=== PATIENT | female | born 1970 | race Caucasian/White ===

== ENCOUNTER → 2017-03-13 | Outpatient (CLI) | payer MEDICARE, OTHER ==
[~2017-03-13] MED LIST: ALDACTONE25 MG PO; AMOXICILLIN500 M1 PO; ELIQUIS5 MG PO; KCL PO; LACTULOSE10 GM/15 M PO; LASIX PO; LIORESAL10 MG PO; LUNESTA1 MG PO; MAGNESIUM27 MG PO; NEURONTIN PO; OXYCODONE HCL10 MG PO; PHENERGAN25 MG PO; PROTONIX PO; TRAZODONE HCL300 MG PO; TYVASO1.74 MG/2. IH; VIAGRA PO; VOLTAREN100 GM TOP; ZOLOFT PO
[2017-03-13 12:24] LABS: HEMATOCRIT 37.3 % (35.0-45.0); HEMOGLOBIN 11.7 gm/dL (12.0-16.0); MEAN CELL VOLUME 76.3 FL (83-96); MEAN CORPUSCULAR HEMOGLOBIN 24.1 PG (28-34); MEAN CORPUSCULAR HGB CONC 31.5 g/dL (30-36); MEAN PLATELET VOLUME 7.6 FL (6.5-11.5); RED BLOOD COUNT 4.88 X10e (3.90-5.30); RED CELL DISTRIBUTION WIDTH 19.8 % (11.0-15.5); WHITE BLOOD COUNT 7.4 X10e3 (4.0-10.5)
[2017-03-13 13:22] LABS: ALBUMIN SERUM 3.7 g/dL (3.5-5.0); BILIRUBIN,TOTAL 3.6 mg/dL (0.2-2.0); BUN/CREATININE RATIO 18.33; CALCIUM SERUM 9.1 mg/dL (8.4-10.2); CREATININE SERUM 0.6 mg/dL (0.6-1.4); GLOM FILT RATE Estimated 109.3 mL/min (>60); POTASSIUM 3.2 mmol/L (3.5-5.1); PROTEIN TOTAL SERUM 8.1 g/dL (6.0-8.3)
== END | disposition home or self-care (01) ==
LOC: CAMB 10:30
PROVIDERS: Orthopaedic Surgery
DX: Z01.812 Encounter for preprocedural laboratory examination (principal); M87.871 Other osteonecrosis, right ankle
CPT/HCPCS: 36415; 80053; 85027

== ENCOUNTER 2017-03-27 09:57 | Inpatient (IN) | payer MEDICARE, OTHER ==
--- NOTE | ~2017-03-27 | DS ---
Unit #: [id number] #: [id number] Patient: SHIELA STRAUSS [id number] [address] [place], [place] [address] [id number] I MR#: [id number] NAME: SHIELA STRAUSS ROOM: 450 Age: 47 Sex: F Admission Date: 03/27/2017 : 1970 Discharge Date: 03/30/2017 Attending Physician: Thompson Hi M.D. Primary Care Physician: Shad Alvarado M.D. DISCHARGE SUMMARY CHIEF COMPLAINT Right ankle pain. HISTORY OF PRESENT ILLNESS The patient is a 47-year-old female with history of alcoholism and cirrhosis, who has right ankle pain secondary to avascular necrosis. She has failed nonoperative care and is therefore admitted for right ankle fusion. HOSPITAL COURSE The patient was taken to the operating room the day of admission where she underwent right ankle fusion using an anterior plate and proximal tibial bone graft with Infuse bone morphogenic protein. Postoperative course was somewhat elise because of pain control issues. Her pain was managed with an IV morphine DINKER and Percocet. She continued to experience significant pain despite her block, which she states did not work. She was seen by internal medicine on a daily basis for prevention of alcohol withdrawal symptoms. Her hematocrit was 27.1% on the first postoperative day. Dressing was changed on the second postoperative day. Wounds were healing well. She was seen by physical therapy on a daily basis and instructed on how to remain nonweightbearing on her effected side. She requested rehabilitation postoperative; therefore, the funeral planner saw and arranged for her to be placed in rehab. She is also recovering from a recent shoulder replacement and knee replacement. She remained otherwise afebrile with stable vital signs. FINAL DIAGNOSIS Right ankle pain, secondary to avascular necrosis. OPERATION PERFORMED Right ankle fusion on March 27, 2017. DISPOSITION AND RECOMMENDATIONS 1. The patient is discharged to rehab. She will have ongoing physical therapy and occupational therapy at that location. 2. She is to remain strictly nonweightbearing on the right ankle for a total of three months. 3. Keep the dressing clean, dry, and intact. Do not change the dressing unless instructed by Dr. Hi. If there are any problems with the dressing, please call Dr. Hi at [phone]. 4. Continue ice and elevation. DISCHARGE MEDICATIONS 1. Lactulose 10 g p.o. q.8 hours p.r.n. constipation. Unit #: [id number] #: [id number] Patient: SHIELA STRAUSS 2. Neurontin 600 mg p.o. t.i.d. 3. Zoloft 150 mg p.o. q.a.m. 4. Phenergan 25 mg p.o. q.4 hours p.r.n. nausea. 5. Lunesta 1 mg p.o. nightly p.r.n. insomnia. 6. Lasix 40 mg p.o. b.i.d. 7. Oxycodone 10 mg without Tylenol one or two p.o. q.4 hours p.r.n. pain. 8. Protonix 40 mg p.o. b.i.d. 9. Baclofen 10 mg p.o. t.i.d. FOLLOWUP Followup in my office in 10-14 days for dressing change, suture removal, and application of cast. Call [phone] to confirm the appointment. Dictated byJavier Hi M.D. GEOVANNA/felix TD: 03/29/2017 08:59 JOB #: [id number] DISCHARGE SUMMARY Page 1 of 1 X Александр Hi MD X DISCHARGE SUMMARY
--- NOTE | ~2017-03-27 | HP ---
Unit #: [id number] #: [id number] Patient: SHIELA STRAUSS [id number] [address] [address] [id number] O MR#: [id number] NAME: SHIELA STRAUSS ROOM: Age: Sex: F Admission Date: 03/27/2017 : 1970 Attending Physician: Thompson Hi M.D. Primary Care Physician: Shad Alvarado M.D. HISTORY AND PHYSICAL DATE OF ADMISSION 03/27/2017 CHIEF COMPLAINT Right ankle pain. HISTORY OF PRESENT ILLNESS The patient is a 47-year-old female with alcoholic liver cirrhosis, hepatic encephalopathy, and right ankle pain secondary to avascular necrosis. The patient has failed conservative care and is therefore admitted for ankle fusion with proximal tibial bone graft. PAST MEDICAL HISTORY Remarkable for: 1. Liver cirrhosis. 2. Hepatic encephalopathy. 3. Avascular necrosis of the ankle. 4. Avascular necrosis of the hip. 5. Blood clotting disorder. 6. Kidney stones. 7. Shoulder pain. 8. History of rheumatic fever. 9. Alcoholism. 10. Arthritis. 11. Depression. 12. Anxiety. 13. Gastroparesis. 14. Chronic pain syndrome. 15. Pulmonary hypertension. She has reportedly been cleared for surgery and will therefore undergo right ankle fusion using possible ankle fusion plate and proximal tibial bone graft with INFUSE bone morphogenic protein. PAST SURGICAL HISTORY 1. Appendectomy. 2. section. 3. Gastric surgery for morbid obesity. 4. Inguinal hernia repair. 5. Sinus surgery. 6. Shoulder replacement. 7. Knee replacement. 8. Revision knee replacement. Unit #: [id number] #: [id number] Patient: SHIELA STRAUSS HOME MEDICATIONS 1. Aspirin. 2. Benzonatate. 3. Eliquis. 4. Endocet. 5. Eszopiclone. 6. Folate. 7. Lasix. 8. Gabapentin. 9. Lactulose. 10. Pantoprazole. 11. Pepcid. 12. Potassium. 13. Protonix. 14. Sildenafil. 15. Spironolactone. 16. Tramadol. 17. Ventolin. 18. Vitamin B1. 19. Voltaren gel. ALLERGIES None. SOCIAL HISTORY Patient drank up to 14 alcoholic drinks per week. She is a current one pack per day smoker for 20 years. FAMILY HISTORY Bipolar, breast cancer, depression, hypertension. PHYSICAL EXAMINATION GENERAL: This is a well-developed, well-nourished female in no acute distress. HEENT: Pharynx is clear. NECK: Supple without masses. HEART: Regular sinus rhythm without murmurs or gallops. LUNGS: Clear. ABDOMEN: Soft and nontender without masses or organomegaly. RIGHT ANKLE: Demonstrates no swelling, erythema, or warmth. The patient has a normal arch, heel is neutral. She has diffuse tenderness about the ankle to palpation in the anterolateral ankle. Ankle motion is painful. Dorsiflexion is present and neutral. Plantar flexion is 15 degrees. Subtalar inversion 10 degrees, eversion 10 degrees. Sensation is intact. Capillary refill is normal. Pulses are intact. Motor exam is normal. DIAGNOSTIC STUDIES IMAGING: Standing x-rays of the right ankle demonstrate avascular necrosis of talar dome and proximal tibia. ADMISSION DIAGNOSIS Symptomatic right ankle arthritis secondary to talar avascular necrosis. PLAN The patient will undergo right ankle fusion with autogenous and allograft bone chips. Will also use INFUSE bone morphogenic protein. I would like to use a plate. Unit #: [id number] #: [id number] Patient: SHIELA STRAUSS This procedure was described along with the risks of bleeding, infection, nerve damage, need for further surgery in the future, prolonged recovery time, deep venous thrombosis, pulmonary embolism, nonunion, malunion, and anesthetic complications. She understands the above risks and agrees to proceed. Dictated by Cheikh Cunningham/whit TD: 03/26/2017 21:04 JOB #: [id number] HISTORY AND PHYSICAL Page 1 of 1 X Александр Hi MD HISTORY AND PHYSICAL
--- NOTE | ~2017-03-27 | US8 ---
[facility] A Service of [facility] & [facility] RADIOLOGY TEXT RESULTS PATIENT: SHIELA STRAUSS LOCATION: B 450-01 : [birth year] UNIT #: [id number] AGE: [address]: Александр Hi MD SEX: F ORDER DR: [id number] [facility] [address] [place]. [place], [place] [address] [id number] I MR#: [id number] Acc #: [id number] NAME: SHIELA STRAUSS : 1970 SEX: F STUDY DATE/TIME: 03/30/2017 15:28 UNIT: [facility] ROOM: [facility] STUDY DESCRIPTION: US Abdominal Wall/Quadrant Attending Physician: Thompson Hi M.D. Ordering Physician: Jakub Blanca M.D. Primary Care Physician: Shad Alvarado M.D. MEDICAL IMAGING REPORT This report is preliminary unless electronic signature is present EXAM Abdominal wall quadrant ultrasound INDICATIONS Ascites. Abdominal distension. TECHNIQUE Carrera-scale imaging of the abdominal quadrants. COMPARISON None. FINDINGS No evidence for ascites. IMPRESSION No ascites. Dictated by... Beto Meek M.D. THIS IS AN ELECTRONICALLY VERIFIED REPORT Beto Meek M.D. at 04/03/2017 7:22 AM EED/jem TD: 03/30/2017 20:47 JOB #: [id number] MEDICAL IMAGING REPORT Page 1 of 1 COPY
--- NOTE | ~2017-03-27 | OR ---
Unit #: [id number] #: [id number] Patient: SHIELA STRAUSS [id number] [address] [address] [id number] I MR#: [id number] NAME: SHIELA STRAUSS ROOM: [facility] Date of Procedure: 03/27/2017 Admission Date: 03/27/2017 Surgeon: Thompson Hi M.D. : 1970 Attending Physician: Thompson Hi M.D. Primary Care Physician: Shad Alvarado M.D. OPERATIVE REPORT PREOPERATIVE DIAGNOSIS Right ankle avascular necrosis. POSTOPERATIVE DIAGNOSIS Right ankle avascular necrosis. PROCEDURES PERFORMED 1. Right ankle fusion (71493). 2. Right proximal tibial bone graft (26692). ASSISTANTS Iris, JIMMY. ANESTHESIA Popliteal saphenous block and general anesthetic. INDICATIONS FOR SURGERY The patient is a 47-year-old female with history of hepatic encephalopathy and alcoholism, who has right ankle pain secondary to distal tibial avascular necrosis. She has failed to respond to conservative care and is therefore to undergo ankle fusion. Risks and benefits of the procedure were discussed. She agrees to proceed. DESCRIPTION OF PROCEDURE The patient underwent right popliteal saphenous block in the anesthesia holding area. She was then taken to the operating room and placed in supine position and general anesthetic was induced. The right leg was identified as the correct operative extremity during the time-out procedure. The IV antibiotic protocol was followed. The right leg was then prepped and draped in usual sterile fashion. The leg was exsanguinated and the thigh tourniquet inflated to 300 mmHg. An anterior longitudinal incision was made over the ankle measuring 12 cm. Subcutaneous tissue was divided. The superficial peroneal nerve was identified and preserved. The extensor retinaculum was opened. The interval between the extensor hallucis longus and anterior tibial tendons was then developed. The neurovascular bundle was retracted laterally. The joint was exposed with subperiosteal dissection. The joint appeared normal. Power osteotomes, curved curettes, and rongeurs were utilized to remove the articular cartilage from both sides of the ankle joint. The underlying subchondral bone was feathered. There was obvious avascular necrosis of the distal tibia. Unit #: [id number] #: [id number] Patient: SHIELA STRAUSS A curvilinear proximal lateral tibial incision was then made measuring 6 cm. Subcutaneous tissue was divided. The extensor fascia was opened and the proximal lateral tibial cortex was exposed subperiosteally. A 1 x 2 cm cortical window was made with the osteotome and a large amount of cancellous graft was harvested with the curved curette. This was packed into the tibiotalar fusion site along with two collagen sponges soaked in Infuse bone morphogenic protein. The donor site was irrigated and then filled with allograft cancellous bone chips and then the cortical window was replaced. The extensor fascia was closed with 0 Vicryl [id number] sutures. Subcutaneous tissue was closed with 3-0 Vicryl and the skin was closed with 3-0 nylon. After the autogenous bone graft was placed into the tibiotalar fusion site, the joint was positioned appropriately and provisionally fixated with a guide pin placed from proximal medial to distal lateral. Proper ankle position was confirmed with C-arm fluoroscopy. Care was taken to ensure the ankle was in 0 degrees of dorsiflexion and about 3 degrees of heel valgus. A Planet8 6.5 mm diameter cannulated screw was placed over this guidepin and tightened. Excellent fixation was achieved. A small anterior Mota plate was applied to the anterior ankle and provisionally pinned in place. It was then fixated to the talus and to the tibia with multiple 4.5 mm diameter cortical screws. Two screws were placed in the talar neck and four screws were placed in the tibia. Excellent fixation was achieved. AP and lateral C-arm fluoroscopic views documented satisfactory joint position and hardware position. Deep tissues were closed with 2-0 Vicryl. Subcutaneous tissue was closed with 3-0 Vicryl. Skin was closed with 3-0 nylon horizontal mattress sutures. Xeroform gauze, dressing, sponges, Webril, and a posterior fiberglass splint were applied. The patient was then transported to the recovery room in stable condition. ESTIMATED BLOOD LOSS 100 mL. COMPLICATIONS None. SPECIMENS None. Dictated by.Cheikh Berumen/aniceto TD: 03/27/2017 22:58 JOB #: [id number] Unit #: [id number] #: [id number] Patient: SHIELA STRAUSS OPERATIVE REPORT Page 1 of 1 X Александр Hi MD PROCEDURE OPERATIVE NOTE
--- NOTE | ~2017-03-27 | DS ---
Unit #: [id number] #: [id number] Patient: SHIELA STRAUSS [id number] [address] [address] [id number] I MR#: [id number] NAME: SHIELA STRAUSS ROOM: [facility] Age: 47 Sex: F Admission Date: 03/27/2017 : 1970 Discharge Date: Attending Physician: Thompson Hi M.D. Primary Care Physician: Shad Alvarado M.D. DISCHARGE SUMMARY ADDENDUM Patient remained in alcohol withdrawal protocol and repeat BMP and stabilization of hypokalemia. The patient will have repeat BMP drawn this afternoon and, if stable, will be transferred to rehab. All discharge instructions remain exactly the same as dictated in original discharge summary. Dictated by... Leydi Pickering P.A.-C. for Cheikh Cunningham/lucas TD: 03/31/2017 11:49 JOB #: [id number] DISCHARGE SUMMARY Page 1 of 1 X Leydi Pickering DISCHARGE SUMMARY
--- NOTE | ~2017-03-27 | CO ---
Unit #: [id number] #: [id number] Patient: SHIELA STRAUSS [id number] [address] [place], [place] [address] [id number] I MR#: [id number] NAME: SHIELA STRAUSS ROOM: 450 Age: 47 Sex: F Admission Date: 03/27/2017 : 1970 Attending Physician: Thompson Hi M.D. Primary Care Physician: Shad Alvarado M.D. Consultation Date: 03/27/2017 CONSULTATION REPORT REASON FOR ADMISSION Right ankle pain. REASON FOR CONSULTATION Alcohol withdrawal. HISTORY OF PRESENT ILLNESS The patient is a 47-year-old lady with a past medical history of alcoholic cirrhosis, history of hepatic encephalopathy, right ankle pain secondary to avascular necrosis. She was admitted electively as the failed conservative surgery for ankle fusion surgery with proximal tibial bone graft. Postoperatively she has had to deal with alcohol withdrawal and the hospital service was consulted. She mentions that she drinks alcohol and she quit in December, but she does have a relapses. She could not quantify how much she drinks. She mentioned that she does smoke pot. She denies any fever, chills, cough, cold, shortness of breath, chest pain, palpitations, abdominal pain, diarrhea, dysuria. She is going through episodes of confusion while conversing. PAST MEDICAL HISTORY 1. Liver cirrhosis. 2. History of avascular necrosis of the ankle. 3. History of avascular necrosis of the hip. 4. History of clotting disorder. 5. History of renal stones. 6. Shoulder pain. 7. History of depression/anxiety. 8. Gastroparesis. 9. Chronic pain. 10. Pulmonary hypertension. SOCIAL HISTORY Currently on disability. Drinks about 14 to 16 alcoholic drinks according to her. Smoker. FAMILY HISTORY Significant for breast cancer, depression, hypertension, bipolar. ALLERGIES No known drug allergies. REVIEW OF SYSTEMS Unit #: [id number] #: [id number] Patient: SHIELA STRAUSS Complete review of systems was done and negative except for that mentioned in the history of present illness. PHYSICAL EXAMINATION GENERAL: The patient is alert and oriented times three. Confused while talking. VITALS: Temperature 98.2, pulse 90, respiratory rate 18, blood pressure 131/63. HEENT: Normocephalic, atraumatic. No icterus. Pupils equally round and reactive to light and accommodation. Extraocular muscles intact. No jugular venous distension. CHEST: Bilateral equal entry. Clear to auscultation. HEART: S1 and S2. Regular rate and rhythm. ABDOMEN: Soft and nontender. EXTREMITIES: Right foot in surgical cast. DIAGNOSTIC STUDIES LABORATORY: Glucose 78, INR 1.2, potassium 3.4. ASSESSMENT/PLAN 1. Right ankle surgery. Will continue with p.r.n. analgesics, p.r.n. incentive spirometer. 2. Alcohol withdrawal. Will keep her on alcohol withdrawal protocol. Will monitor her electrolytes. Will get STAT CBC, CMP, magnesium and will monitor and replace the electrolytes. 3. Hypokalemia. Will replace and recheck. 4. History of alcohol cirrhosis. Will monitor. 5. Chronic pain. Will continue with pain medications. Will give her p.r.n. laxatives and also p.r.n. Zofran while she is on pain medications. 6. DVT precautions. 7. Io would like to thank the admitting team for giving us an opportunity to take part in the care of this pleasant patient. We will follow the patient with you. Dictated by... Cheikh St TD: 03/28/2017 08:22 JOB #: [id number] CONSULTATION REPORT Page 1 of 1 X X CONSULTATION REPORT
[~2017-03-27 09:57] MED LIST changes: -AMOXICILLIN500 M1 PO
[2017-03-27] MEDS ORDERED: AMOXICILLIN500 M1 PO (10:19)
[2017-03-27 13:17] LABS: INR 1.2; PROTHROMBIN TIME (PATIENT) 12.5 SECONDS (9.6-11.5)
[2017-03-27 20:28] LABS: HEMATOCRIT 28.6 % (35.0-45.0); HEMOGLOBIN 8.7 gm/dL (12.0-16.0); MEAN CELL VOLUME 78.6 FL (83-96); MEAN CORPUSCULAR HGB CONC 30.6 g/dL (30-36); MEAN PLATELET VOLUME 9.1 FL (6.5-11.5); RED BLOOD COUNT 3.64 X10e (3.90-5.30); RED CELL DISTRIBUTION WIDTH 20.2 % (11.0-15.5); WHITE BLOOD COUNT 2.2 X10e3 (4.0-10.5)
[2017-03-27 20:59] LABS: ALBUMIN SERUM 2.6 g/dL (3.5-5.0); BILIRUBIN,TOTAL 1.4 mg/dL (0.2-2.0); BUN/CREATININE RATIO 23.33; CALCIUM SERUM 7.4 mg/dL (8.4-10.2); CREATININE SERUM 0.3 mg/dL (0.6-1.4); GLOM FILT RATE Estimated 137.4 mL/min (>60); MAGNESIUM 1.3 mg/dL (1.6-3.0); POTASSIUM 3.5 mmol/L (3.5-5.1); PROTEIN TOTAL SERUM 5.9 g/dL (6.0-8.3)
[2017-03-27 21:02] LABS: THYROID STIMULATING HORMONE 2.72 uIU/ml (0.34-5.60)
[2017-03-27 21:09] LABS: FREE THYROXIN (T4) 0.75 ng/dL (0.58-1.64)
[2017-03-28 03:41] LABS: HEMATOCRIT 27.1 % (35.0-45.0); HEMOGLOBIN 8.4 gm/dL (12.0-16.0)
[2017-03-28 03:48] LABS: BUN/CREATININE RATIO 23.33; CREATININE SERUM 0.3 mg/dL (0.6-1.4); GLOM FILT RATE Estimated 137.4 mL/min (>60); MAGNESIUM 1.9 mg/dL (1.6-3.0); POTASSIUM 3.1 mmol/L (3.5-5.1)
[2017-03-29 03:49] LABS: HEMATOCRIT 29.7 % (35.0-45.0); HEMOGLOBIN 9.1 gm/dL (12.0-16.0); MEAN CELL VOLUME 77.9 FL (83-96); MEAN CORPUSCULAR HEMOGLOBIN 23.9 PG (28-34); MEAN CORPUSCULAR HGB CONC 30.7 g/dL (30-36); RED BLOOD COUNT 3.8 X10e (3.90-5.30); RED CELL DISTRIBUTION WIDTH 19.7 % (11.0-15.5)
[2017-03-29 03:50] LABS: WHITE BLOOD COUNT 8.6 X10e3 (4.0-10.5)
[2017-03-29 04:09] LABS: BUN/CREATININE RATIO 12.5; CALCIUM SERUM 7.9 mg/dL (8.4-10.2); CREATININE SERUM 0.4 mg/dL (0.6-1.4); GLOM FILT RATE Estimated 124.9 mL/min (>60); MAGNESIUM 2.2 mg/dL (1.6-3.0); POTASSIUM 3.6 mmol/L (3.5-5.1)
[2017-03-30 03:53] LABS: CALCIUM SERUM 7.5 mg/dL (8.4-10.2); CARBON DIOXIDE 29 mmol/L (22-31); CHLORIDE 100 mmol/L (100-111); CREATININE SERUM 0.3 mg/dL (0.6-1.4); GLOM FILT RATE Estimated 137.4 mL/min (>60); GLUCOSE FASTING 105 mg/dL (70-110); POTASSIUM 3.1 mmol/L (3.5-5.1); SODIUM 134 mmol/L (135-145)
[2017-03-30 03:55] LABS: BLOOD UREA NITROGEN <5 mg/dL (9-23); BUN/CREATININE RATIO 16.66
[2017-03-31 04:26] LABS: BASOPHIL% 0.4 % (0-2.5); HEMOGLOBIN 8.1 gm/dL (12.0-16.0); LYMPHOCYTE# 1.2 X10e3 (1.0-3.5); LYMPHOCYTE% 17.6 % (17.0-45.0); MEAN CELL VOLUME 76.4 FL (83-96); MEAN CORPUSCULAR HEMOGLOBIN 23.8 PG (28-34); MEAN CORPUSCULAR HGB CONC 31.1 g/dL (30-36); MEAN PLATELET VOLUME 9.5 FL (6.5-11.5); MONOCYTE# 0.6 X10e3 (0-1.0); MONOCYTE% 8.9 % (3.0-12.0); NEUTROPHIL# 5.2 X10e3 (1.5-7.1); NEUTROPHIL% 73.1 % (40-75); PLATELET COUNT 58 X10e3 (140-420); RED CELL DISTRIBUTION WIDTH 19.6 % (11.0-15.5); WHITE BLOOD COUNT 7.1 X10e3 (4.0-10.5)
[2017-03-31 04:31] LABS: DIFF IND NO
[2017-03-31 04:42] LABS: ALBUMIN SERUM 2.4 g/dL (3.5-5.0); BILIRUBIN,TOTAL 2.2 mg/dL (0.2-2.0); CALCIUM SERUM 7.3 mg/dL (8.4-10.2); CREATININE SERUM 0.4 mg/dL (0.6-1.4); GLOM FILT RATE Estimated 124.9 mL/min (>60); MAGNESIUM 1.8 mg/dL (1.6-3.0); POTASSIUM 3.3 mmol/L (3.5-5.1); PROTEIN TOTAL SERUM 5.8 g/dL (6.0-8.3)
[2017-03-31 13:25] LABS: URINE SOURCE CLEAN CATCH
[2017-03-31 13:32] LABS: URINE APPEARANCE CLOUDY; URINE BILIRUBIN NEG (NEG); URINE BLOOD 3+ (NEG); URINE COLOR DK YELLOW; URINE GLUCOSE NEG (NEG); URINE KETONE NEG (NEG); URINE LEUKOCYTE ESTERASE TRACE (NEG); URINE NITRATE POS (NEG); URINE PH 7.5 (5-8); URINE PROTEIN NEG (NEG); URINE SPECIFIC GRAVITY 1.009 (1.003-1.035); URINE UROBILINOGEN 0.2 MG/DL (NEG)
[2017-03-31 13:34] LABS: U HYALINE CASTS AUWI 0-2 /[LPF]; URBCS1 AUWI INNUM /[HPF] (0-2); URINE BACTERIA AUWI 4+ (NEGATIVE); URINE SQUAMOUS EPITHELIAL CELL OCC /[HPF]
[2017-03-31 13:54] LABS: AMPHETAMINE NEG (NEG); BARBITURATES NEG (NEG); BENZODIAZEPINES POS (NEG); COCAINE NEG (NEG); MARIJUANA NEG (NEG); OPIATES POS (NEG); TRICYCLIC ANTIDEPRESSANTS NEG (NEG); U METHADONE NEG (NEG)
[2017-03-31 15:48] LABS: BUN/CREATININE RATIO 23.33; CALCIUM SERUM 7.5 mg/dL (8.4-10.2); CREATININE SERUM 0.3 mg/dL (0.6-1.4); GLOM FILT RATE Estimated 137.4 mL/min (>60); POTASSIUM 3.6 mmol/L (3.5-5.1)
[2017-04-02 04:00] LABS: MAGNESIUM 1.6 mg/dL (1.6-3.0); POTASSIUM 3.1 mmol/L (3.5-5.1)
== END 2017-04-02 11:58 | DRG 493 ==
LOC: CSUR 09:57 → CPACUOF 14:45 → CSUR 15:23 → C4B 15:23 → CPACUOF 16:36 → C4B 16:36
PROVIDERS: Family Medicine; Internal Medicine; Orthopaedic Surgery
PROC: 0QBG0ZZ Excision of Right Tibia, Open Approach (ICD-10-PCS; 2017-03-27)
PROC: 0SGF07Z Fusion of Right Ankle Joint with Autologous Tissue Substitute, Open Approach (ICD-10-PCS; principal; 2017-03-27 11:30)
PROC: 0SGF04Z Fusion of Right Ankle Joint with Internal Fixation Device, Open Approach (ICD-10-PCS; 2017-03-27 11:30)
DX: M87.871 Other osteonecrosis, right ankle (principal); F10.239 Alcohol dependence with withdrawal, unspecified; I27.2 Other secondary pulmonary hypertension; K70.30 Alcoholic cirrhosis of liver without ascites; K72.90 Hepatic failure, unspecified without coma; M87.859 Other osteonecrosis, unspecified femur; Z87.442 Personal history of urinary calculi; M19.90 Unspecified osteoarthritis, unspecified site; F32.9 Major depressive disorder, single episode, unspecified; F41.9 Anxiety disorder, unspecified; K31.84 Gastroparesis; G89.4 Chronic pain syndrome; Z96.619 Presence of unspecified artificial shoulder joint; Z96.659 Presence of unspecified artificial knee joint; E87.6 Hypokalemia; Z71.41 Alcohol abuse counseling and surveillance of alcoholic; G89.18 Other acute postprocedural pain
CPT/HCPCS: 76705; 80048; 80053; 80307; 81003; 82140; 82947; 83735; 84132; 84439; 84443; 84703; 85014; 85018; 85025; 85027; 85610; 86592; 94010; 94760; 97110; 97116; 97162; 97530; C1713; G8978-GP; G8979-GP; J0690; J1170; J2250; J2270; J2795; J3010; J3411; J3475; J7042